=== PATIENT | female | born 1995 ===

== ENCOUNTER 2017-04-08 19:21 | Emergency (ER) | payer BC ==
[2017-04-08 19:46] VITALS: O2SAT 98
[2017-04-08] MEDS ORDERED: Sodium Chloride 0.9% 1,000 ML IV STA (20:22)
--- NOTE | 2017-04-08 20:26 | ED PDOC ---
HPI: General Adult Time Seen by Provider: 04/08/17 20:03 Chief Complaint (Nursing): GI Problem Chief Complaint (Provider): flu-like symptoms History Per: Patient History/Exam Limitations: no limitations Onset/Duration Of Symptoms: Days (2) Current Symptoms Are (Timing): Still Present Additional History Per: Patient Additional Complaint(s): 21 y/o female presents with flu-like symptoms x 2 days. Patient reports nasal congestion, cough, throat pain, and one vomiting episode. Fever noted upon arrival. Denies ear pain, chest pain, shortness of breath, palpitations, changes in bowel movements, urinary symptoms, recent travel, sick contacts. Past Medical History Reviewed: Historical Data, Nursing Documentation, Vital Signs Vital Signs: Last Vital Signs Temp 99.6 F 04/08/17 23:02 Pulse 132 H 04/08/17 19:42 Resp 16 04/08/17 19:42 BP 144/101 H 04/08/17 19:42 Pulse Ox 98 04/08/17 20:26 - Medical History PMH: No Chronic Diseases - Surgical History Surgical History: No Surg Hx - Family History Family History: States: No Known Family Hx - Living Arrangements Living Arrangements: Alone (student) - Home Medications Home Medications: Ambulatory Orders Medication Instructions Recorded Ondansetron ODT [Zofran ODT] 4 mg PO Q8 PRN #10 odt 04/08/17 Oseltamivir [Tamiflu] 75 mg PO BID #9 cap 04/08/17 - Allergies Allergies/Adverse Reactions: Allergies Allergy/AdvReac Type Severity Reaction Status Date / Time No Known Allergies Allergy Verified 04/08/17 19:46 Review of Systems ROS Statement: Except As Marked, All Systems Reviewed And Found Negative Constitutional: Positive for: Fever, Chills ENT: Positive for: Nose Congestion, Throat Pain Respiratory: Positive for: Cough Gastrointestinal: Positive for: Nausea, Vomiting Physical Exam - Reviewed Nursing Documentation Reviewed: Yes Vital Signs Reviewed: Yes - Physical Exam Appears: Positive for: Well, Non-toxic, No Acute Distress Head Exam: Positive for: ATRAUMATIC, NORMAL INSPECTION, NORMOCEPHALIC Skin: Positive for: Normal Color Eye Exam: Positive for: Normal appearance ENT: Positive for: Normal ENT Inspection Cardiovascular/Chest: Positive for: Regular Rate, Rhythm Respiratory: Positive for: Normal Breath Sounds Gastrointestinal/Abdominal: Positive for: Normal Exam Back: Positive for: Normal Inspection Extremity: Positive for: Normal ROM Neurologic/Psych: Positive for: Alert, Oriented - Laboratory Results Result Diagrams: 04/08/17 20:52 04/08/17 20:52 - ECG O2 Sat by Pulse Oximetry: 98 - Progress ED Course And Treament: labs, flu, strep, urine, IV fluids, IV zofran, PO ibuprofen On re-eval, patient states she is feeling better. Tolerating PO Patient educated on findings, discharged with rx Tamiflu (dose given in ED), Zofran Advised fluids. Rest. Tylenol/Ibuprofen PRN fever. Educated on elevated LFTs, denies abdominal pain. Abdomen remains soft, NT/ND. Copies of labs given to f/up PMD Follow up PMD 2-3 days. Return precautions given. Disposition - Clinical Impression Clinical Impression: Influenza - Patient ED Disposition Is Patient to be Admitted: No Counseled Patient/Family Regarding: Studies Performed, Diagnosis, Need For Followup, Rx Given - Disposition Disposition: Routine/Home Disposition Time: 23:28 Condition: IMPROVED Prescriptions: Ondansetron ODT [Zofran ODT] 4 mg PO Q8 PRN #10 odt PRN Reason: Nausea/Vomiting Oseltamivir [Tamiflu] 75 mg PO BID #9 cap Instructions: Influenza (ED) Forms: [facility] ([place]), [facility] ED School/Work Excuse
[2017-04-08 21:15] LABS: BASO % 0.3 % (0.0-2.0); EOS % 0.4 % (0.0-4.0); HEMOGLOBIN 12.6 g/dL (12.0-16.0); LYMPH # 0.6 K/uL (1.0-4.3); LYMPH % 8.2 % (20.0-40.0); MEAN CELL VOLUME 82.4 fl (81.0-99.0); MEAN CORPUSCULAR HEMOGLOBIN 26.6 pg (27.0-31.0); MEAN CORPUSCULAR HGB CONC 32.3 g/dL (33.0-37.0); MEAN PLATELET VOLUME 8.9 fl (7.2-11.7); MONO # 0.6 K/uL (0.0-0.8); MONO % 9.2 % (0.0-10.0); NEUT # 5.6 K/uL (1.8-7.0); NEUT % 81.9 % (50.0-75.0); NRBC % 0.6 % (0.0-0.0); PLATELET COUNT 258 K/uL (130-400); RBC 4.74 Mil/uL (3.80-5.20); RED CELL DISTRIBUTION WIDTH 14.7 % (11.5-14.5); WHITE BLOOD COUNT 6.8 K/uL (4.8-10.8)
[2017-04-08 21:20] LABS: SQUAMOUS EPITHIAL 5 /hpf (0-5); URINE BACTERIA OCC (<OCC); URINE BILIRUBIN NEGATIVE (NEGATIVE); URINE BLOOD NEGATIVE (NEGATIVE); URINE CLARITY CLOUDY (Clear); URINE COLOR YELLOW (YELLOW); URINE GLUCOSE (UA) NEG (Normal); URINE HYALINE CAST 0-2 /hpf (0-2); URINE LEUKOCYTE ESTERASE TRACE Leu/uL (Negative); URINE NITRATE NEGATIVE (NEGATIVE); URINE PROTEIN NEGATIVE (NEGATIVE); URINE UROBILINOGEN 0.2-1.0 mg/dL (0.2-1.0)
[2017-04-08 21:30] LABS: CALCIUM 9.4 mg/dL (8.4-10.2); GFR AFRICAN-AMERICAN > 60; GFR NON-AFRICAN AMERICAN > 60; LIPASE 36 U/L (23-300)
[2017-04-08 21:32] LABS: ALB/GLOB RATIO 1.2 (1.0-2.1); ALBUMIN 4.5 g/dL (3.5-5.0); ALT/SGPT 188 U/L (9-52); AST/SGOT 133 U/L (14-36); BLOOD UREA NITROGEN 6 mg/dl (7-17)
[2017-04-08 23:03] VITALS: TEMP 99.6
[2017-04-08 23:45] VITALS: BP 97/71; PULSE 96; RESP 18
[2017-04-09 01:00] LABS: BANDS 1 % (0-2); BASOPHIL 2 % (0-2); LYMPHOCYTE 6 % (20-50); MONOCYTE 7 % (0-10); NEUTROPHIL 84 % (42-75); PLATELET ESTIMATE NORMAL (NORMAL); TOTAL CELLS COUNTED 100
== END 2017-04-09 00:22 | disposition home or self-care (01) ==
LOC: H.ER 19:21
DX: J11.1 Influenza due to unidentified influenza virus with other respiratory manifestations (principal)
CPT/HCPCS: 80053; 81003; 81025; 83690; 85025; 87070; 87086; 87430; 87804; 96360; 99283; J2405; J7040